=== PATIENT | male | born 2000 | race Two or more races ===

== ENCOUNTER 2023-06-18 09:57 | Emergency (ER) | payer OTHER ==
[~2023-06-18] VITALS: Ht 175.3 cm; Wt 76.0 kg
[2023-06-18 11:44] VITALS: TEMP 98.3
[2023-06-18] MEDS ORDERED: FLUORESCEIN SODIUM 1 MG STRIP OD ONE (11:45)
[2023-06-18] MEDS ORDERED: PROPARACAINE HCL 0.5% 15 ML OPHTHALMIC SOLUTION OD ONE (11:45)
[2023-06-18] MEDS ORDERED: FLUORESCEIN SODIUM 1 MG STRIP ONE (11:53)
[2023-06-18] MEDS ORDERED: PROPARACAINE HCL 0.5% 15 ML OPHTHALMIC SOLUTION ONE (11:53)
[2023-06-18] MEDS ORDERED: ACETAMINOPHEN 500 MG TABLET PO ONE (12:15)
[2023-06-18 14:07] VITALS: BP 122/67; PULSE 68; RESP 17
== END 2023-06-18 15:23 | disposition home or self-care (01) ==
LOC: EDUNIT# 09:57 → EMS 09:57
DX: H57.11 Ocular pain, right eye (principal); F17.210 Nicotine dependence, cigarettes, uncomplicated; F14.90 Cocaine use, unspecified, uncomplicated
CPT/HCPCS: 70450; 70486; 99284